=== PATIENT | male | born 1985 | race Asian ===

== ENCOUNTER 2018-01-28 12:29 | Emergency (ER) | payer MEDICAID ==
[~2018-01-28] VITALS: Ht 177.8 cm; Wt 124.7 kg
[2018-01-28 12:34] VITALS: BP 159/116
--- NOTE | 2018-01-28 12:36 | NUR ---
PT AMBULATED TO BED 1
--- NOTE | 2018-01-28 12:41 | NUR ---
PATIENT PRESENTS TO ED WITH RASH FROM LEFT BACK TO LEFT RIBS X 2 DAYS BURNING PAIN . DENIES N/V/D; SKIN IS PINK/WARM/DRY; AAOX4 WITH EVEN AND STEADY GAIT; LUNGS CLEAR BL; HR EVEN AND REGULAR; PT DENIES ANY FEVER, CP, SOB, OR COUGH AT THIS TIME; PATIENT STATES PAIN OF 7/10 AT THIS TIME; VSS; PATIENT POSITIONED FOR COMFORT; HOB ELEVATED; BEDRAILS UP X2; BED DOWN. ER MD MADE AWARE OF PT STATUS.
[2018-01-28] MEDS ORDERED: ACYCLOVIR 700 MG in NACL 0.9% 100 ML IV ONE (12:55)
[2018-01-28] MEDS ORDERED: DIAZEPAM 5 MG TAB PO ONE (12:55)
[2018-01-28] MEDS ORDERED: KETOROLAC 30 MG/ML VIAL IVP ONE (12:55)
[2018-01-28] MEDS ORDERED: ACYCLOVIR 500 MG VIAL IV ONE (13:32)
[2018-01-28 15:17] VITALS: BP 159/116
--- NOTE | 2018-01-28 15:17 | NUR ---
PATIENT DISCHARGED BY DR CALABRESE. RX OF NAPROSYN, ACYCLOVIR AND VALIUM GIVEN
== END 2018-01-28 15:17 | disposition home or self-care (01) ==
LOC: MED 12:29
DX: B02.9 Zoster without complications (principal)
CPT/HCPCS: 96365; 96375; 99283; J0133; J1885

== ENCOUNTER 2021-06-11 17:34 | Emergency (ER) | payer BC, MEDICAID ==
[~2021-06-11] VITALS: Ht 177.8 cm; Wt 125.6 kg
[2021-06-11 17:42] VITALS: BP 146/84
--- NOTE | 2021-06-11 18:28 | NUR ---
PT AMBULATED TO ER BED 2
--- NOTE | 2021-06-11 19:13 | NUR ---
36 y/o male, c/o left wrist abscess and chills that started 5 days ago, area appears very swollen, area is raised with redness and edea around site. tender with palpation, no drainage at this time. pt denies injury or trauma to area. denies nausea, vomiting, diarrhea. skin is pink/warm/dry. a&o x4 with even and steady gait. lungs clear bl, heart rate even and regular. pt denies any fever, cp, sob, or cough at this time. pt states pain is 7/10 at this time, sharp. vss. patient positioned for comfort. hob elevated. bed down. ermd made aware of pt. pmh: [facility] fever nka med: fluconazole
--- NOTE | 2021-06-11 19:13 | NUR ---
Pt report given to May RN. Transfer of care at this time.
--- NOTE | 2021-06-11 19:51 | NUR ---
Dr. Dalton examining patient.
[2021-06-11] MEDS ORDERED: CEPH-588 PO (19:59)
[2021-06-11] MEDS ORDERED: [UNRECOGNIZED DRUG - CODE] TP (20:04)
[2021-06-11 20:17] VITALS: BP 146/84
--- NOTE | 2021-06-11 20:17 | NUR ---
Patient discharged with v/s stable. Written and verbal after care instructions given and explained. Patient alert, oriented and verbalized understanding of instructions. Ambulatory with steady gait. All questions addressed prior to discharge. ID band removed. Patient advised to follow up with PMD. Rx of Bacitracin and Keflex given. Patient educated on indication of medication including possible reaction and side effects. Opportunity to ask questions provided and answered.
== END 2021-06-11 20:17 | disposition home or self-care (01) ==
LOC: MED 17:34
DX: L02.414 Cutaneous abscess of left upper limb (principal); B38.9 Coccidioidomycosis, unspecified; L52 Erythema nodosum; Z79.899 Other long term (current) drug therapy
CPT/HCPCS: 99283